=== PATIENT | male | born 1975 | race African-American/Black ===

== ENCOUNTER 2016-10-21 10:19 | Emergency (ER) | payer MEDICAID ==
[~2016-10-21] VITALS: Ht 182.9 cm; Wt 133.8 kg
--- NOTE | 2016-10-21 10:20 | NUR ---
PT CAME IN WITH C/O FEVER AND CHILL SINCE LAST NIGHT OJHN=265.7 ORAL TEMP. PT AAOX3. SEEN BY MD FOR EVAL. OTHER VSS. SAFETY AND COMFORT MEASURES PROVIDED. WILL MONITOR.
[2016-10-21] MEDS ORDERED: ACETAMINOPHEN ES 500 MG TABLET PO ONE (10:30)
[2016-10-21] MEDS ORDERED: ACETAMINOPHEN ES 500 MG TABLET ONE (10:39)
[2016-10-21 10:41] LABS: BASOPHILS # (AUTO) 0.1 /CMM (0.0-0.2); BASOPHILS % (AUTO) 0.4 % (0.0-2.0); EOSINOPHILS % (AUTO) 0.1 % (0.0-6.0); HEMATOCRIT 51 % (39-51); HEMOGLOBIN 16.3 g/dL (13.5-17.5); LYMPHOCYTES # (AUTO) 1.1 /CMM (0.8-4.8); LYMPHOCYTES % (AUTO) 5.5 % (20.0-44.0); MEAN CORPUSCULAR HEMOGLOBIN 27 PG (26.0-33.0); MEAN CORPUSCULAR HGB CONC 32 g/dl (31.0-36.0); MEAN CORPUSCULAR VOLUME 83 fL (80-96); MONOCYTES # (AUTO) 0.1 /CMM (0.1-1.30); MONOCYTES % (AUTO) 0.7 % (2.0-12.0); NEUTROPHILS # (AUTO) 18.9 /CMM (1.8-8.9); NEUTROPHILS % (AUTO) 93.3 % (43.0-81.0); PLATELET COUNT (AUTO) 204 /CMM (150-450); RDW COEFFICIENT OF VARIATION 13.2 (11.5-15.0); RED BLOOD CELL COUNT(AUTO) 6.15 MIL/uL (4.5-6.0); WHITE BLOOD COUNT (AUTO) 20.2 K/uL (4.3-11.0)
[2016-10-21 10:48] LABS: CALCIUM, SERUM 8.6 mg/dL (8.5-10.1); CREATININE 1.3 mg/dL (0.6-1.3); POTASSIUM 3.9 mmol/L (3.5-5.1)
--- NOTE | 2016-10-21 10:50 | NUR ---
PT MEDICATED ORDERED.
[2016-10-21] MEDS ORDERED: ALBUTEROL FS 2.5 MG/3 ML VIAL.NEB NEB ONE (11:00)
[2016-10-21] MEDS ORDERED: IPRATROPIUM NEB FS 0.5 MG/2.5 ML AMPUL.NEB NEB ONE (11:00)
--- NOTE | 2016-10-21 11:00 | NUR ---
CALLED RT FOR BREATHING TX ORDERS.
[2016-10-21] MEDS ORDERED: ALBUTEROL FS 2.5 MG/3 ML VIAL.NEB ONE (11:20)
[2016-10-21] MEDS ORDERED: IPRATROPIUM NEB FS 0.5 MG/2.5 ML AMPUL.NEB ONE (11:20)
--- NOTE | 2016-10-21 11:25 | NUR ---
VERFIED WITH MD FOR BLOOD CULTURE ORDERS BEFORE ABX ADMINISTRATION.
[2016-10-21] MEDS ORDERED: CEFTRIAXONE 1 G in IV D5W 50 ML IV ONE (11:30)
[2016-10-21] MEDS ORDERED: IV NS 0.9% 1,000 ML IV ONE (11:30)
[2016-10-21] MEDS ORDERED: CEFTRIAXONE 1GM BAG (ER ONLY) 1 GM/50 ML PIGGYBACK IV ONE (11:30)
--- NOTE | 2016-10-21 12:50 | NUR ---
IV removed. Catheter intact and site benign. Pressure and 4x4 applied to site. No bleeding noted.
--- NOTE | 2016-10-21 13:02 | NUR ---
Patient discharged to home in stable condition. Written and verbal after care instructions given. Patient verbalizes understanding of instruction.
[2016-10-21 13:03] VITALS: BP 130/118
== END 2016-10-21 13:04 | disposition home or self-care (01) ==
LOC: ER 10:23
DX: J18.9 Pneumonia, unspecified organism (principal); J45.909 Unspecified asthma, uncomplicated
CPT/HCPCS: 36415; 71020; 80048; 85025; 94640; 96365; 99285; A4606; J0696; J7030; J7060; Z7610